=== PATIENT | female | born 1990 | race Caucasian/White ===

== ENCOUNTER 2020-02-04 23:55 | Emergency (ER) | payer SELFPAY ==
[2020-02-05 00:01] VITALS: BP 106/75; PULSE 72; RESP 18; TEMP 36.8; O2SAT 98
--- NOTE | 2020-02-05 00:10 | ED.SKABFB ---
HPI - Skin/Abscess/Foreign Bdy General Chief complaint: Skin/Abscess/Foreign Body Stated complaint: insect bites Source: patient Mode of arrival: ambulatory Limitations: no limitations History of Present Illness HPI narrative: Noticed a few bites on arm leg and abdomen. They were red and she was concerned. She was seeen at urgent care a few hours ago. but she wanted a second opinion. SHe does have a cat with fleas right now complaint: rash Severity: mild Relieving factors: none Exacerbating factors: none Associated symptoms: denies other symptoms Treatments prior to arrival: none (was seen in and given clindamycin) Related Data Home Medications Medication Instructions Recorded Confirmed No Home Medications 02/05/20 02/05/20 Allergies Allergy/AdvReac Type Severity Reaction Status Date / Time Pertussis Vaccines Allergy Unknown Verified 02/05/20 00:06 Review of Systems Review of Systems: All systems reviewed & are unremarkable except as noted in HPI and below PMFSH Past Medical History Medical History Charcot-Carrie disease Social History Social History Smoking status: Current every day smoker Tobacco type: cigarettes Alcohol use details: denies Substance use: current Substance use type: marijuana Exam Const: General: no acute distress and alert Nutritional Appearance: thin (very thin) Orientation/consciousness: patient oriented x3 HENMT: Head: normal to inspection Neck: Neck: normal visual inspection Chest: Chest palpation & inspection: normal inspection of the chest Resp: Effort & Inspection: normal respiratory effort Auscultation: clear to auscultation bilaterally Cardio: Rate: regular rate Skin: Other: 3 discreet inscet bites with mild surrounding erythema. Skin appears excoriated. Neuro: General: patient oriented x3, moves all extremities and no focal motor deficits Speech: normal speech Extrem: General: normal to inspection Psych: Appearance: grossly normal Mental Status: mental status grossly normal Thought content: Yes Normal thought content present Critical Care Time Critical Care Time Critical Care Time: No Discharge Plan Discharge Clinical Impression: Insect bites Patient Disposition: Home, Self-Care Condition: Stable Instructions: Antibiotic Form, Insect Bite or Sting (ED) Additional Instructions: Use meds you were prescribed, and you can use some topical hydrocortisone cream as well Prescriptions: No Action No Home Medications RF: 0 Follow-up/Referrals: Dov Campbell MD [Primary Care Provider] - Time of Disposition: 00:09
== END 2020-02-05 00:16 | disposition home or self-care (01) ==
PROVIDERS: Emergency Provider Emergency Medicine; PCP Internal Medicine
DX: T14.8XXA Other injury of unspecified body region, initial encounter (principal); W57.XXXA Bitten or stung by nonvenomous insect and other nonvenomous arthropods, initial encounter
CPT/HCPCS: 99281